=== PATIENT | female | born 1955 | race Caucasian/White ===

== ENCOUNTER 2024-07-18 06:36 | Day surgery (SDC) | payer MEDICARE ==
[2024-07-18] MEDS: CEFAZOLIN 2 GM/100 ML NaCl 2 GM/100 ML IVPB IV SCH (06:50)
[2024-07-18] MEDS: Lactated Ringers 1,000 ML IV SCH (06:51)
[2024-07-18 06:59] LABS: Absolute Neutrophil Ct (ANC) 5.11 x10^3/uL (1.56-6.13); BASOPHIL % 0.5 % (0.1-1.2); Basophil (Absolute #) 0.04 x10^3/uL (0.01-0.08); Eosinophil % 3.2 % (0.7-5.8); Eosinophil (Absolute #) 0.25 x10^3/uL (0.04-0.36); Hematocrit 38.3 % (34.1-44.9); Hemoglobin 12.9 g/dL (11.2-15.7); IMMATURE GRAN # 0.03 x10^3u/L (0.001-0.031); IMMATURE GRAN % 0.4 % (0.001-0.429); Lymphocyte (Absolute #) 1.71 x10^3/uL (1.18-3.74); Lymphocytes % 22.1 % (19.3-51.7); Mean Cell Volume 90.1 fL (79.4-94.8); Mean Corpuscular Hemoglobin 30.4 pg (25.6-32.2); Mean Corpuscular Hgb Concent. 33.7 g/dL (32.2-35.5); Mean Platelet Volume 9.7 fL (9.4-12.3); Monocytes % 7.8 % (4.7-12.5); Platelet Count 267 x10^3/uL (182-369); Red Blood Count 4.25 x10^6/uL (3.93-5.22); Red Cell Distribution Width 12.4 % (11.7-14.4); White Blood Count 7.7 x10^3/uL (3.98-10.04)
[2024-07-18] MEDS ORDERED: Zofran 4 MG/2 ML VIAL ONE ×3 (07:03→11:57)
[2024-07-18] MEDS ORDERED: propofoL IV ONE ×2 (07:03→09:05)
[2024-07-18 07:12] LABS: ALBUMIN 4.6 g/dL (3.5-5.0); ANION GAP 17.3 MEQ/L (5-15); BILIRUBIN,TOTAL 0.4 mg/dL (0.2-1.3); Calcium 8.9 mg/dL (8.4-10.2); Creatinine 1 0.94 mg/dL (0.52-1.04); EST GLOMERULAR FILTRATION RATE 65.3 ML/MIN; Potassium 4.3 mmol/L (3.5-5.1); Total Protein 7.4 g/dL (6.3-8.2)
[2024-07-18 07:13] VITALS: RESP 16
[2024-07-18] MEDS ORDERED: dexAMETHasone sodium phosphate ONE (09:05)
[2024-07-18] MEDS ORDERED: SUBLIMAZE 100 MCG/2 ML ONE ×2 (09:05→10:51)
[2024-07-18] MEDS ORDERED: Xylocaine-Mpf 2% 5 Ml Vial ONE (09:05)
[2024-07-18] MEDS ORDERED: Lactated Ringers 1,000 ML IV ONE (09:23)
[2024-07-18] MEDS ORDERED: Marcaine Mpf 0.5% Vial 30 Ml ONE (09:23)
[2024-07-18] MEDS ORDERED: Xylocaine 1% Vial 30 ML PF IJ ONE (09:23)
--- NOTE | 2024-07-18 10:44 | XRAY ---
Indication: Left 1st MTP arthrodesis. Intraoperative fluoroscopy was provided for 43 seconds. 12 digital spot images submitted for interpretation ultimately demonstrates 1st MTP arthrodesis with intact fixation hardware. Correlate with intraoperative findings/report.
[2024-07-18] MEDS ORDERED: DILAUDID 0.5 MG/0.5 ML SYRINGE ONE (10:51)
[2024-07-18] MEDS ORDERED: MORPHINE SULFATE 10 MG/ML ONE (11:16)
--- NOTE | 2024-07-18 12:12 | XRAY ---
43 seconds of fluoroscopy was used in surgery for a left 1st MTP arthrodesis.
[2024-07-18] MEDS ORDERED: Compazine 10 MG/2 ML ONE (12:49)
[2024-07-18 13:36] VITALS: BP 122/59; PULSE 85; TEMP 97; O2SAT 93
[2024-07-18] MEDS: celeBREX 100 MG PO ONE (15:57)
[2024-07-18] MEDS: TYLENOL EXTRA STRENGTH 500 MG PO ONE (15:57)
[2024-07-18] MEDS: NEURONTIN PO ONE (15:57)
[2024-07-18] MEDS: Decadron 4 MG PO ONE (15:57)
--- NOTE | 2024-07-19 10:42 | OP ---
SURGERY DATE/TIME: 07/18/2024 [id number] PREOPERATIVE DIAGNOSES: 1) First metatarsophalangeal joint osteoarthritis. 2) Left foot pain. 3) Difficulty with ambulation. 4) Hallux valgus. POSTOPERATIVE DIAGNOSES: 1) First metatarsophalangeal joint osteoarthritis. 2) Left foot pain. 3) Difficulty with ambulation. 4) Hallux valgus. 5) Tophaceous gout. PROCEDURE: First metatarsophalangeal joint arthrodesis with a Zeynep ALPS first metatarsophalangeal joint 0-degree plate, left foot. SURGEON: Juan Dorantes DPM ASSISTANTS: IVAN Phillips and ROMY Gupta. ANESTHESIA: General. HEMOSTASIS: An ankle tourniquet set to 250 mmHg for a total of 40 total tourniquet minutes. ESTIMATED BLOOD LOSS: Approximately 5 mL. MATERIALS: 4-0 Monocryl, 3-0 nylon, 2-0 Vicryl, a Zeynep ALPS first MPJ 0-degree plate, a 4.0 x 36 VPC screw, and a combination of locking and nonlocking screws. INJECTABLES: 10 mL of 1:1 mixture of 1% lidocaine plain and 0.5% bupivacaine plain injected to the left foot postoperatively. INDICATIONS FOR PROCEDURE: The patient is a very pleasant 69-year-old female well known to my service for pain to the first MPJ. She had been dealing with this issue for several years now and has been dealt with conservatively with another provider, Dr. Gonzalez, out of [place]. She has failed conservative management at this time and is looking for something definitive. Given the degree of pain, restricted range of motion, and osteoarthritis that is indicated on the radiographs, decision was made to proceed with a first MPJ fusion. The patient has been made aware of all risks, complications, and benefits of surgical intervention at this time including, but not limited to, infection, hematoma, seroma, possibility of non-wound healing, delayed wound healing, failure of union, delayed union, malunion, or nonunion. Given these risks assessed given patient's current health status, from that standpoint, patient had all questions answered to their apparent satisfaction. Plenty of time was allowed for the patient to ask questions, which were answered to her apparent satisfaction. From that standpoint, we have decided to proceed. DESCRIPTION OF PROCEDURE AND FINDINGS: Patient was brought into the operating room and placed on the operating room table in the supine position. General anesthesia was administered until the patient was adequately sedated. A well-padded ankle tourniquet was applied to the patient's left ankle. The left lower extremity was prepped and draped in a typical sterile fashion and lowered onto the surgical field. At this time, an Esmarch was utilized to exsanguinate the leg. The tourniquet was inflated to 250 mmHg. At this time, an incision was made at the dorsal aspect of the first MPJ just medial to the extensor hallucis longus tendon. This was carried down utilizing a 15 blade with careful dissection making sure not to damage any neurovascular structures along the way. The extensor hallucis longus tendon was freed from its soft tissue attachments and retracted laterally for the remainder of the procedure. At this time, the capsule of the first MPJ was encountered where there was a significant amount of tophaceous gout that was encountered. The capsulotomy took place with a medial and lateral J stroke. Once this was performed, the articular surface of the cartilage was assessed. There was a significant amount of denuding of the cartilage down to the level of the subchondral bone at the central portion of the first MPJ more so medially than laterally. There was also significant spurring at the medial and lateral aspects of the joint as well as the dorsal aspect of the joint. From that standpoint, cup and conical reamers were utilized, utilizing a K-wire at the center of the joint and reaming off the remaining cartilage. Once this was performed and the subchondral bone was exposed on both sides, rongeur was utilized to resect any overhanging bone margins and then copious amounts of sterile saline were utilized to flush the surgical site. A 2.0 mm drill was then utilized to fenestrate both the proximal phalanx and the metatarsal head for vascular ingrowth. From that standpoint, the joint was then closed down and assessed on radiograph. Once it was deemed to be appropriate as far as position and joint preparation, decision was made to proceed with application of a Zeynep ALPS first MPJ 0-degree plate to the right foot as well as an interfragmentary screw. The interfragmentary screw was first drilled across with a K-wire and then distal locking screws were placed into the plate. The interfragmentary screw and the eccentric slot were engaged simultaneously and then rotated between the 2 to gain the maximal amount of compression through this site. Once this was performed, the remainder of the holes was filled utilizing a combination of locking and nonlocking screws. Once this was performed, this was checked under multiple views of fluoroscopic guidance and deemed to be in an adequate position. From that standpoint, copious amounts of sterile saline were utilized to flush the surgical site. A 2-0 Vicryl was utilized to repair the capsule and the extensor hallucis longus tendon. Once this was performed, 4-0 Monocryl was utilized to coapt the subcutaneous skin edges and then 3-0 nylon was utilized in a horizontal mattress-type fashion for co-aptation of the skin. Once this was performed, a dressing consisting of Betadine, Adaptic, 4 x 4, Kerlix, ABD, and Grant was applied to the patient's right lower extremity. Patient was then provided a CAM boot and then reversed from anesthesia and returned to the postoperative anesthesia care unit with vital signs stable and vascular status intact. Patient handled the anesthesia as well as the procedure without significant complications. Postoperative orders as indicated in the patient's discharge chart.
== END 2024-07-18 18:40 | disposition home or self-care (01) ==
LOC: SDC 06:36 → MED SURG 12:40 → SDC 18:40
PROVIDERS: ATTEND Podiatrist Foot & Ankle Surgery
DX: M19.072 Primary osteoarthritis, left ankle and foot (principal); M79.672 Pain in left foot; R26.2 Difficulty in walking, not elsewhere classified; M20.12 Hallux valgus (acquired), left foot; E11.9 Type 2 diabetes mellitus without complications
CPT/HCPCS: 28750; 36415; 73630; 76000; 80053; 82947; 85025; 93005; C1713; J0690; J1100; J1171; J2270; J2405; J2704; J3010